=== PATIENT | male | born 1980 ===

== ENCOUNTER 2021-01-11 09:22 | Emergency (ER) | payer BC ==
--- NOTE | 2021-01-11 09:32 | EDM.PDOC ---
ED HPI GENERAL MEDICAL PROBLEM - General Chief Complaint: Back Pain or Injury Stated Complaint: BACK INJURY Time Seen by Provider: 01/11/21 09:45 - History of Present Illness INITIAL COMMENTS - FREE TEXT/NARRATIVE: History of present illness: [] This patient has a back strain. Yesterday he was trying to pull a grill out of a truck and the wheels did not come down so he shook it. He bent over and then he put it back in a truck. He did not use his legs to lift but leaned over and carried the full weight. He felt a back strain at that time and the muscle spasms gotten worse since. At the initial onset he had numbness around down his left thigh. That has resolved. He has pain that is moderately severe worse with movement and associated with spasm in the back mostly on the left side and in the bit mid back. Review of systems: As per history of present illness and below otherwise all systems reviewed and negative. Past medical history: As per history of present illness and as reviewed below otherwise noncontri butory. Surgical history: As per history of present illness and as reviewed below otherwise noncontributory. Social history: No reported history of drug or alcohol abuse. Family history: As per history of present illness and as reviewed below otherwise noncontributory. Physical exam: Constitutional - well developed, well-nourished and in no acute distress HEENT - normocephalic, no evidence of trauma - external nose and mouth normal - no mass in neck and no JVD - mucosae moist EYES - full EOM, PERRL, no icterus - no evidence of inflammation, injection, or drainage Respiratory - no respiratory distress, equal bilateral expansion, lungs clear to auscultation and no abnormal lung sounds Cardiovascular - Regular Rhythm with S1 and S2 appreciated and no murmur, gallop or rub. GI - abdomen soft without distension or organomegaly - no guard or rebound Musculoskeletal tenderness in the lumbar area in the paraspinous muscles only. Straight leg raise negative for radicular pain. No gross deformity of long bones or joints - no tenderness, swelling or edema Neurologic - Alert and oriented times four - CN II-XII grossly intact - motor sensory and coordination symmetrically normal Psychiatric - appropriate mood and affect with normal thought content Hematologic - No petechiae or purpura - mucosa appropriate color and sclera not pale - normal nail bed color and refill Integument - no rash or evidence of trauma - normal turgor Diagnostics: [] Therapeutics: [] Impression: [] Plan: [] Definitive disposition and diagnosis as appropriate pending reevaluation and review of above. 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 ED EXAM, GENERAL - Physical Exam Exam: See Below Free Text/Narrative:: My physical exam is in the HPI Course - Vital Signs Last Recorded V/S: Last Vital Signs Temp 36.4 C 01/11/21 09:36 Pulse 79 01/11/21 09:36 Resp 17 01/11/21 09:36 BP 125/82 01/11/21 09:36 Pulse Ox 96 01/11/21 09:36 - Orders/Labs/Meds Meds: Medications Discontinued Medications Generic Name Dose Route Start Last Admin Trade Name Freq PRN Reason Stop Dose Admin Dexamethasone 10 mg 01/11/21 09:51 Dexamethasone 10 Mg/Ml Sdv IM 01/11/21 09:52 ONETIME ONE Departure - Departure Time of Disposition: 09:58 Disposition: Home, Self-Care 01 Condition: Good Clinical Impression: Back strain - Discharge Information Prescriptions: methylPREDNISolone [Medrol Dose Pack] 4 mg PO DAILY #21 tab diazePAM [Valium] 5 mg PO TID PRN #15 tab PRN Reason: Muscle Spasm Instructions: Lumbosacral Strain Referrals: Michel Cabral MD [Primary Care Provider] - Forms: ED Department Discharge Additional Instructions: You must return immediately if you lose feeling movement or strength in your legs or if you lose feeling in your buttocks or if you lose control of your bowel or bladder. [facility] - Primary Care [address] [place] [address] [facility] [address] [place] [id number] The following information is given to patients seen in the emergency department who are being discharged to home. This information is to outline your options for follow-up care. We provide all patients seen in our emergency department with a follow-up referral. The need for follow-up, as well as the timing and circumstances, are variable depending upon the specifics of your emergency department visit. If you don't have a primary care physician on staff, we will provide you with a referral. We always advise you to contact your personal physician following an emergency department visit to inform them of the circumstance of the visit and for follow-up with them and/or the need for any referrals to a consulting specialist. The emergency department will also refer you to a specialist when appropriate. This referral assures that you have the opportunity for follow-up care with a specialist. All of these measure are taken in an effort to provide you with optimal care, which includes your follow-up. Under all circumstances we always encourage you to contact your private physician who remains a resource for coordinating your care. When calling for follow-up care, please make the office aware that this follow-up is from your recent emergency room visit. If for any reason you are refused follow-up, please contact the [facility] Emergency Department at and asked to speak to the emergency department charge nurse. You can take the Valium when you are not going to be operating machinery or driving and at bedtime. Sepsis Event Note (ED) - Focused Exam Vital Signs: Vital Signs Temp Pulse Resp BP Pulse Ox 01/11/21 09:36 36.4 C 79 17 125/82 96
[2021-01-11] MEDS ORDERED: Dexamethasone 10 MG/ML SDV IM ONE (09:51)
[2021-01-11 10:12] VITALS: BP 135/79; PULSE 81
== END 2021-01-11 10:22 | disposition home or self-care (01) ==
LOC: MW.ED 09:22
DX: S39.012A Strain of muscle, fascia and tendon of lower back, initial encounter (principal); X50.1XXA Overexertion from prolonged static or awkward postures, initial encounter
CPT/HCPCS: 96372; 99283; J1100

== ENCOUNTER 2021-04-16 09:27 | Emergency (ER) | payer SELFPAY ==
[2021-04-16] MEDS ORDERED: Tetracaine HCl/PF 0.5% 4 ML Bottle EYEBOTH ONE (10:01)
--- NOTE | 2021-04-16 10:23 | EDM.PDOC ---
ED HPI GENERAL MEDICAL PROBLEM - General Chief Complaint: ENT Problem Stated Complaint: RT EYE HURTS AND SENSITIVE Time Seen by Provider: 04/16/21 10:00 Source of Information: Reports: Patient History Limitations: Reports: No Limitations - History of Present Illness INITIAL COMMENTS - FREE TEXT/NARRATIVE: HISTORY AND PHYSICAL: History of present illness: Patient is a 40 year old male who presents to the ED today with concern of right eye pain/redness that he woke up with this AM with it. Patient states he wears his contacts incorrectly and immediately removed them this morning due to pain. He states he has monthly contacts and supposed to take out at night and throw away after 30 days but states he wears them for 30 days straight without removing them then changes them out after a month. Denies any visual changes. Denies foreign body to eye. Patient denies fever, chills, chest pain, shortness of breath, or cough. Denies headache, neck stiff ness, change in vision, syncope, or near syncope. Denies nausea, vomiting, abdominal pain, diarrhea, constipation, or dysuria. Has not noted any blood in urine or stool. Patient has been eating and drinking appropriately. Review of systems: As per history of present illness and below otherwise all systems reviewed and negative. Past medical history: As per history of present illness and as reviewed below otherwise no ncontributory. Surgical history: As per history of present illness and as reviewed below otherwise noncontributory. Social history: See social history for further information Family history: As per history of present illness and as reviewed below otherwise noncontributory. Physical exam: General: Patient is alert, oriented, and in no acute distress. Patient sitting comfortably on exam table. Vitals stable and reviewed by me. HEENT: Visual acuity intact. EOMS intact without pain or difficulty. Fluroscene stain of the right eye performed with possible small corneal abrasion/ulceration at the 6 o clock position. Bilateral upper and lower lids everted without sign of foreign body. Negative for corneal opacity, hyphema, or hypopyon. Right eye conjunctival injected and tearing. Otherwise, atraumatic, normocephalic, pupils equal and reactive bilaterally, negative for conjunctival pallor or scleral icterus, mucous membranes moist, neck supple, nontender, trachea midline. No drooling or trismus noted. No meningeal signs. No hot potato voice noted. Lungs: Clear to auscultation, breath sounds equal bilaterally, chest nontender. Heart: S1S2, regular rate and rhythm without overt murmur Abdomen: Soft, nondistended, nontender. Negative for masses or hepatosplenomegaly. Negative for costovertebral tenderness. Pelvis: Stable nontender. Genitourinary: Deferred. Rectal: Deferred. Skin: Intact, warm, dry. No lesions or rashes noted. Extremities: Atraumatic, negative for cords or calf pain. Neurovascular unremarkable. Neuro: Awake, alert, oriented. Cranial nerves II through XII unremarkable. Cerebellum unremarkable. Motor and sensory unremarkable throughout. Exam nonfocal. Notes: I did call and speak to the special procedure tech enthone solder stripper, Dr. Hebert and thoroughly discussed patients case. He would like patient to be placed on ofloxacin drops q. 30 minutes to 1 hour while awake and every 2 hours while asleep and will see patient on Saturday if he is unable to get in with his regular eye doctor. Strict return precautions thoroughly discussed with patient. Discussed importance for follow-up with the special procedure tech/mine development engineer. Voices understanding and is agreeable to plan of care. Denies any further questions or concerns at this time. Diagnostics: Fluroscene stain Therapeutics: Tetracaine ophthalmic Prescription: Ciprofloxacin ophthalmic Impression: Corneal ulceration, right eye Plan: 1. Apply medication as prescribed. You can alternate ibuprofen and Tylenol as directed for pain and discomfort. 2. DO NOT USE YOUR CONTACTS until you have been cleared by the ophtha lmologist/mine development engineer to use them. 3. Follow-up on Saturday with your mine development engineer, if your mine development engineer is not able to see you, Dr. Hebert will see you in his clinic. The number has been provided above for you to call and set up an appointment time for Saturday. 4. Return to the ED as needed and as discussed. Definitive disposition and diagnosis as appropriate pending reevaluation and review of above. Right Eye Pain Score (Numeric/FACES): 5 - Related Data Allergies Allergy/AdvReac Type Severity Reaction Status Date / Time No Known Allergies Allergy Verified 04/16/21 09:51 Home Meds: Home Meds ALPRAZolam [Xanax] 1 mg PO QID PRN 05/04/15 [History] diazePAM [Valium] 5 mg PO TID PRN #15 tab 01/11/21 [Rx] methylPREDNISolone [Medrol Dose Pack] 4 mg PO DAILY #21 tab 01/11/21 [Rx] Ofloxacin [Ocuflox 0.3% Ophth Soln] 2 drop EYERT DAILY 6 Days #1 bottle 04/16/21 [Rx] Past Medical History - Past Health History Medical/Surgical History: Denies Medical/Surgical History - Infectious Disease History Infectious Disease History: Reports: None - Past Surgical History Other HEENT Surgeries/Procedures: 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 ED EXAM, GENERAL - Physical Exam Exam: See Below (see dictation) Course - Vital Signs Last Recorded V/S: Last Vital Signs Temp 98.1 F 04/16/21 09:52 Pulse 88 04/16/21 09:52 Resp 17 04/16/21 09:52 BP 118/77 04/16/21 09:52 Pulse Ox 95 04/16/21 09:52 - Orders/Labs/Meds Orders: Active Orders 24 hr Category Date Time Status Communication Order [RC] STAT Care 04/16/21 10:01 Active Meds: Medications Discontinued Medications Generic Name Dose Route Start Last Admin Trade Name Finesseq PRN Reason Stop Dose Admin Tetracaine HCl 2 ml 04/16/21 10:01 04/16/21 10:11 Tetracaine Hcl/Pf 0.5% 4 Ml Bottle EYEBOTH 04/16/21 10:02 1 dose ASDIRECTED ONE Administration Departure - Departure Time of Disposition: 10:34 Disposition: Home, Self-Care 01 Clinical Impression: Corneal ulcer - Discharge Information Prescriptions: Ofloxacin [Ocuflox 0.3% Ophth Soln] 2 drop EYERT DAILY 6 Days #1 bottle Instructions: Corneal Ulcer Referrals: Michel Cabral MD [Primary Care Provider] - Forms: ED Department Discharge Additional Instructions: The following information is given to patients seen in the emergency department who are being discharged to home. This information is to outline your options for follow-up care. We provide all patients seen in our emergency department with a follow-up referral. The need for follow-up, as well as the timing and circumstances, are variable depending upon the specifics of your emergency department visit. If you don't have a primary care physician on staff, we will provide you with a referral. We always advise you to contact your personal physician following an emergency department visit to inform them of the circumstance of the visit and for follow-up with them and/or the need for any referrals to a consulting specialist. The emergency department will also refer you to a specialist when appropriate. This referral assures that you have the opportunity for follow-up care with a specialist. All of these measure are taken in an effort to provide you with optimal care, which includes your follow-up. Under all circumstances we always encourage you to contact your private physician who remains a resource for coordinating your care. When calling for follow-up care, please make the office aware that this follow-up is from your recent emergency room visit. If for any reason you are refused follow-up, please contact the [facility] Emergency Department at and asked to speak to the emergency department charge nurse. [facility], Dr. Hebert, ophthalmology [address] [place] [address] 1. Apply medication as prescribed. You can alternate ibuprofen and Tylenol as directed for pain and discomfort. 2. DO NOT USE YOUR CONTACTS until you have been cleared by the special procedure tech/mine development engineer to use them. 3. Follow-up on Saturday with your mine development engineer, if your mine development engineer is not able to see you, Dr. Hebert will see you in his clinic. The number has been provided above for you to call and set up an appointment time for Saturday. 4. Return to the ED as needed and as discussed. Sepsis Event Note (ED) - Evaluation Sepsis Screening Result: No Definite Risk - Focused Exam Vital Signs: Vital Signs Temp Pulse Resp BP Pulse Ox 04/16/21 09:52 98.1 F 88 17 118/77 95 - My Orders Last 24 Hours: My Active Orders 04/16/21 10:01 Communication Order [RC] STAT - Assessment/Plan Last 24 Hours: My Active Orders 04/16/21 10:01 Communication Order [RC] STAT
[2021-04-16 10:51] VITALS: BP 110/64; PULSE 73
== END 2021-04-16 10:51 | disposition home or self-care (01) ==
LOC: MW.ED 09:27
DX: H16.001 Unspecified corneal ulcer, right eye (principal)
CPT/HCPCS: 99283

== ENCOUNTER 2023-12-11 09:56 | Emergency (ER) | payer BC ==
[2023-12-11 10:26] LABS: BILIRUBIN,URINE NEGATIVE (NEGATIVE); COLOR,URINE YELLOW; GLUCOSE,URINE NEGATIVE (NEGATIVE); KETONES,URINE NEGATIVE (NEGATIVE); LEUKOCYTE ESTERASE,URINE NEGATIVE (NEGATIVE); NITRITE,URINE NEGATIVE (NEGATIVE); OCCULT BLOOD,URINE LARGE (NEGATIVE); PH,URINE 5.5 (5.0-8.0); PROTEIN,URINE NEGATIVE (NEGATIVE); UROBILINOGEN,URINE 0.2 EU/dL (<2.0)
[2023-12-11 10:29] LABS: APPEARANCE,URINE HAZY
[2023-12-11 10:32] LABS: BASOPHILS ABSOLUTE AUTO 0.03 K/uL (0.00-0.20); BASOPHILS PERCENT AUTO 0.4 % (0.0-1.0); EOSINOPHILS ABSOLUTE AUTO 0.04 K/uL (0.00-0.45); EOSINOPHILS PERCENT AUTO 0.5 % (0.0-6.0); HEMATOCRIT 47.7 % (42.0-52.0); HEMOGLOBIN 16.6 g/dL (14.0-18.0); IMMATURE GRAN ABSOLUTE AUTO 0.01 K/uL (0.00-0.05); IMMATURE GRAN PERCENT AUTO 0.1 % (0.0-0.4); LYMPHOCYTES ABSOLUTE AUTO 2.52 K/uL (1.00-4.80); LYMPHOCYTES PERCENT AUTO 34.2 % (24.0-44.0); MEAN CORPUSCULAR HEMOGLOBIN 30.7 pg (28.0-32.0); MEAN CORPUSCULAR HGB CONC 34.8 g/dL (32.0-36.0); MEAN CORPUSCULAR VOLUME 88.2 fL (83.0-99.0); MEAN PLATELET VOLUME 11.6 fL (9.4-12.4); MONOCYTES ABSOLUTE AUTO 0.55 K/uL (0.00-0.80); MONOCYTES PERCENT AUTO 7.5 % (0.0-8.0); NEUTROPHILS ABSOLUTE AUTO 4.21 K/uL (1.80-7.70); NEUTROPHILS PERCENT AUTO 57.3 % (41.0-71.0); PLATELET COUNT,PLT 264 K/uL (150-400); RED BLOOD CELL COUNT 5.41 M/uL (4.52-5.90); WHITE BLOOD CELL COUNT,WBC 7.36 K/uL (3.9-11.3)
[2023-12-11 10:33] LABS: BACTERIA,URINE FEW (NEGATIVE); EPITHELIAL CELLS,URINE FEW (NONE-FEW); RBC,URINE 20-30 (0-2/HPF); WBC,URINE 0-3 (0-5/HPF)
[2023-12-11] MEDS: Sodium Chloride 0.9% 1,000 ML IV STA (10:35)
[2023-12-11] MEDS: Ketorolac 30 MG/ML SDV IVPUSH STA (10:36)
[2023-12-11] MEDS: Sodium Chloride 0.9% 2.5 ML Syringe FLUSH PRN (10:37)
[2023-12-11] MEDS: Sodium Chloride 0.9% 10 ML Syringe FLUSH PRN (10:37)
[2023-12-11 10:56] LABS: A/G RATIO 0.9 (0.9-1.6); ALBUMIN 3.9 g/dL (3.4-5.0); BILIRUBIN TOTAL 0.8 mg/dL (0.2-1.0); CALCIUM 9.1 mg/dL (8.5-10.1); CARBON DIOXIDE,CO2 28.7 mmol/L (21.0-32.0); CREATININE 1.2 mg/dL (0.8-1.3); EST CRCL DRUG DOSING (CG) 81.01 mL/min; POTASSIUM,K 4.2 mmol/L (3.5-5.1); PROTEIN TOTAL,TP 8.1 g/dL (6.4-8.2)
[2023-12-11] MEDS: Iopamidol 755 MG/ML 500 ML Multipack Bottle IVPUSH STA (11:31)
[2023-12-11 12:06] VITALS: BP 135/87; PULSE 78
== END 2023-12-11 12:12 | disposition home or self-care (01) ==
LOC: MW.ED 09:56
DX: N13.2 Hydronephrosis with renal and ureteral calculous obstruction (principal); Z75.8 Other problems related to medical facilities and other health care; Z79.899 Other long term (current) drug therapy
CPT/HCPCS: 36415; 74177; 80053; 81001; 83690; 85025; 96361; 96374; 99284; J1885; J3490; J7030; Q9967